=== PATIENT | female | born 1980 | race Caucasian/White ===

== ENCOUNTER 2018-11-27 22:57 | Emergency (ER) | payer OTHER ==
[~2018-11-27] VITALS: Ht 160 cm; Wt 59.9 kg
[2018-11-27 22:58] VITALS: BP 143/81
--- NOTE | 2018-11-27 23:01 | NUR ---
TO LOBBY A/W BED, AMBULATORY
--- NOTE | 2018-11-27 23:30 | NUR ---
PT AMBULATED TO ER BED 01
--- NOTE | 2018-11-27 23:40 | NUR ---
ASSUMED TEMPORARY CARE OF PT AT THIS TIME FOR PRIMARY RN ON BREAK. C/O SORETHROAT AND MILD COUGH X 1 WEEK. NO RESPIRATORY DISTRESS NOTED...PT SPEAKS IN FULL SENTENCES. AAOX4 WITH EVEN AND STEADY GAIT; PATIENT STATES PAIN OF 5/10; VSS; PATIENT POSITIONED FOR COMFORT; HOB ELEVATED; BEDRAILS UP X2; BED DOWN. ER MD MADE AWARE OF PT STATUS. WILL CONTINUE TO MONITOR.
[2018-11-28] MEDS ORDERED: LORazepam 1 MG TAB PO ONE (00:45)
[2018-11-28 01:35] VITALS: BP 133/78
== END 2018-11-28 01:35 | disposition home or self-care (01) ==
LOC: MED 22:57
DX: F41.9 Anxiety disorder, unspecified (principal); F45.8 Other somatoform disorders
CPT/HCPCS: 99284